=== PATIENT | female | born 1950 | race African-American/Black ===

== ENCOUNTER 2018-08-14 08:16 | Day surgery (SDC) | payer MEDICARE, OTHER ==
[2018-08-14] MEDS ORDERED: DEXAMETHASONE SODIUM PHOSPHATE 10 MG/ML VIAL ONE (08:48)
[2018-08-14] MEDS ORDERED: LIDOCAINE HCL 1% PF 300MG/30ML VIAL ONE (08:48)
[2018-08-14] MEDS ORDERED: ONDANSETRON HCL/PF 4 MG/ 2ML VIAL ONE (08:48)
[2018-08-14] MEDS ORDERED: PROPOFOL 200 MG/20 ML VIAL IV ONE (08:48)
[2018-08-14] MEDS ORDERED: LIDOCAINE HCL 2% PF 100MG/5ML VIAL IJ ONE (08:48)
[2018-08-14] MEDS ORDERED: FAMOTIDINE 20 MG/2 ML VIAL IV ONE (08:48)
[2018-08-14] MEDS ORDERED: PHENYLEPHRINE HCL 10 MG/1 ML ONE (08:48)
[2018-08-14] MEDS ORDERED: SUGAMMADEX SODIUM 200 MG/2 ML VIAL IV ONE (08:48)
[2018-08-14] MEDS ORDERED: SEVOFLURANE 250 ML LIQUID IH ONE (08:48)
[2018-08-14] MEDS ORDERED: MIDAZOLAM HCL 2 MG/2 ML VIAL ONE (08:48)
[2018-08-14] MEDS ORDERED: ENOXAPARIN SODIUM 40 MG/0.4 ML DISP.SYRIN SQ ONE (08:48)
[2018-08-14] MEDS ORDERED: ceFAZolin SODIUM 1 GM VIAL ONE (08:48)
[2018-08-14] MEDS ORDERED: LACTATED RINGERS 1,000 ML IV.SOLN IV ONE (08:48)
[2018-08-14] MEDS ORDERED: ROCURONIUM BROMIDE 10 MG/ML 5ML VIAL ONE (08:48)
[2018-08-14] MEDS ORDERED: SODIUM CHLORIDE IRRIG SOLUTION 3,000 ML IRRIG.SOLN IR ONE (08:48)
[2018-08-14] MEDS ORDERED: BUPIV. HCL 0.25% (2.5MG/ML)/EPI. (1:200,000) PF 10 ML VIAL IM ONE (08:48)
[2018-08-14] MEDS ORDERED: LACTATED RINGERS 1,000 ML IV ONE (12:13)
--- NOTE | 2018-08-26 16:03 | Operative Note ---
PREOPERATIVE DIAGNOSIS: 1. Morbid obesity. 2. Hypertension. 3. Obstructive sleep apnea. POSTOPERATIVE DIAGNOSIS: 1. Morbid obesity. 2. Hypertension. 3. Obstructive sleep apnea. 4. Hiatal hernia. PROCEDURES PERFORMED: 1. Laparoscopic vertical sleeve gastrectomy. 2. Laparoscopic repair of hiatal hernia. 3. Upper gastrointestinal endoscopy. SURGEON: Frank Boston M.D. INDICATIONS FOR PROCEDURE: Ms. Isabel is a 68-year-old female who presented with features of morbid obesity. She was noted to have a weight of 230 pounds with a BMI of 46.5 with the above-listed comorbidities. The patient was advised laparoscopic vertical sleeve gastrectomy and possible hiatal hernia repair. The patient showed understanding and agreed to proceed. DESCRIPTION OF PROCEDURE: After explaining to the patient in detail and informed consent was obtained, the patient was identified in the preoperative holding area. The patient was transferred to the operating room and was placed in supine position. Sequential compressive devices were placed for DVT prophylaxis. Preoperative antibiotics were given. After induction of anesthesia, the abdomen was prepped and draped in a sterile fashion. Through a left upper quadrant 1-cm incision, and using Optiview technique, the peritoneal cavity was entered and pneumoperitoneum was created. Thereafter, under direct vision, a 5-mm trocar was placed in the left midabdomen, a 15-mm trocar was placed in the right midabdomen, and another 5-mm trocar was placed in the right subcostal region. Through a 1-cm incision in the epigastrium, a Fabiola retractor was introduced and the left lobe of the liver was retracted. On initial inspection, the patient was noted to have a 3-cm hiatal hernia. Using pars flaccida technique, the right anderson was identified. The sac was gently dissected off the right anderson using hook electrocautery and subsequently with LigaSure. This was continued anteriorly. I then continued to mobilize anteriorly and along the left anderson as much as possible. After adequate mobilization, I then performed an anterior cruroplasty with a [id number] Ethibond suture. This was done using an Endo Stitch device. Another suture was then used to anchor the GE junction onto the right crura as well. I then started to take down the gastroepiploic vessels along the greater curvature. This was continued superiorly. The short gastric vessels were taken down. The gastrophrenic ligament was divided and the Angle of His was mobilized. Distally, the gastroepiploic vessels were taken down up to about 4 cm proximal to the pylorus. At this point, a #40 [place] Hurst bougie was inserted into the stomach and this was placed along the lesser curve. The stomach was then divided in a vertical fashion with multiple Endo DYLLAN Covidien Stapler black loads with Kirsty-Strips. The first firing was directed outwards towards the greater curvature. Subsequent firings were directed towards the Angle of His to create a loose sleeve around the #40 [place] bougie. Absolute hemostasis was ensured. Thorough saline irrigation was given. An upper GI endoscopy was then performed at this stage. The orogastric tube was removed. The scope was introduced into the esophagus and was gradually advanced into the stomach. An air leak test was performed and no leak was noted along the staple line. Absolute hemostasis was ensured. Thorough saline irrigation was given. The sleeve gastrectomy specimen was removed. The Fabiola retractor was removed. The 15-mm port site incision was closed with 0 Vicryl using a fascial closure device. The skin was closed with 4-0 Monocryl for all the incisions. Dermabond was applied. The patient was stable at the end of the procedure. The patient was awakened from anesthesia and was transferred to the recovery room in stable condition. ESTIMATED BLOOD LOSS: 25 mL. CONDITION OF THE PATIENT: Stable. FLUIDS GIVEN: Per Anesthesia note. SPECIMEN(S) SENT: Sleeve gastrectomy specimen. COMPLICATIONS: None. ANESTHESIA: General. Frank Boston M.D. CORDELIA/suzy (Please copy [facility] provider when applicable) Job #[id number] [place]
== END 2018-08-14 12:49 | disposition other institution (70) ==
LOC: OPSURG 08:16
PROVIDERS: ATTEND Surgery
DX: E66.01 Morbid (severe) obesity due to excess calories (principal); K44.9 Diaphragmatic hernia without obstruction or gangrene; G47.33 Obstructive sleep apnea (adult) (pediatric); I10 Essential (primary) hypertension; Z68.42 Body mass index [BMI] 45.0-49.9, adult
CPT/HCPCS: 43775; 88305; J0690; J1650; J2001; J2250; J2370; J2405; J2704; J7120

== ENCOUNTER 2018-08-14 12:50 | Inpatient (IN) | payer MEDICARE, OTHER ==
[2018-08-14 13:13] VITALS: BMI 45.0
--- NOTE | 2018-08-14 13:13 | History and Physical Report ---
History of Present Illnes - History of Present Illness Reason for Visit: S/P LSG History of Present Illness: Patient is a 68-year-old female who has tried multiple diets and exercise programs with no success. She has always struggled with her weight. She has tried many diet plans, diet pills, and walking but has not been able to keep it off. Patient and surgeon decided to proceed with gastric sleeve procedure. Procedure went well- She will be admitted and monitored s/p surgical intervention. Patient has been on a liquid diet prior to surgery so she is a risk of dehydration s/p surgery. She will be admitted for IV hydration to help hydrate patient until she is able to tolerate a sufficient oral intake, will treat pain with IV medication until patient is able to tolerate oral meds, IV antiemetics to help reduce episodes of nausea and/or vomiting. Patient will be monitored closely using telemetry due to cardiac history of HTN and sleep apnea. Will monitor closely for hypo/hyperglycemia. Upon nursing entry to room patient was sleeping- oxygen saturation 65%. Patient was woken up- moved up in bed and placed on supplemental oxygen- Oxygen saturation increased > 95%. Patient is still very sleepy-arouses to name. Siblings are at patient bedside. - Past Medical History Cardiac: CAD, CHF, HTN Pulmonary: Asthma, Bronchitis, COPD, Sleep Apnea MATERIALS INTERN: Migraine Gastrointestinal: GERD, Irritable bowel disease, Other (DYSPEPSIA) Heme/Onc: Anemia NOS Psych: Anxiety, Depression Musculoskeletal: Osteoarthritis, Other (DJD) Rheumatologic: Fibromyalgia Endocrine: Diabetes, obesity - Past Surgical History Past Surgical History: Other (SHOULDER) - Past Family History Mother Family History: Father Family History: - Past Social History Smoke: Quit (2002) Alcohol: None Drugs: None Lives: With Family - Health Maintenance Health Maintenance: Cholesterol Influenza Vaccine: Current for this Influenza Season Pneumonia Vaccine: No Resuscitation Status: FULL CODE Review of Systems - Review of Systems Constitutional: negative: Fever, Chills Eyes: other (wears glasses). negative: vision change ENT: negative: Nose Congestion, Throat Pain Respiratory: Other (Oxygen sat was in the 70s on room air and sleeping). negative: Shortness of Breath, SOB with Excertion Cardiovascular: negative: Chest Pain, Light Headedness Gastrointestinal: Nausea, Abdominal Pain. negative: Vomiting Genitourinary: negative: Dysuria Musculoskeletal: Back Pain Skin: negative: Rash Neurological: Other (still very sleepy) - Medications/Allergies Allergies/Adverse Reactions: Allergies Allergy/AdvReac Type Severity Reaction Status Date / Time Sulfa (Sulfonamide Allergy Verified 08/14/18 13:04 Antibiotics) Home Medications: Home Medications ARIPiprazole [Abilify] 2 mg PO DAILY 08/14/18 Cetirizine HCl [Allergy] 10 mg PO DAILY 08/14/18 Esomeprazole Magnesium 20 mg PO BID 08/14/18 Furosemide 20 mg PO DAILY 08/14/18 Gabapentin 300 mg PO BID 08/14/18 Losartan Potassium [Cozaar] 100 mg PO BID 08/14/18 Lubiprostone [Amitiza] 24 mcg PO DAILY 08/14/18 Metformin HCl 500 mg PO BID 08/14/18 Pregabalin [Lyrica] 50 mg PO TID 08/14/18 Sertraline HCl [Zoloft] 50 mg PO DAILY 08/14/18 Tizanidine HCl [Zanaflex] 4 mg PO TID 08/14/18 Tramadol HCl [Ultram] 50 mg PO Q6 PRN 08/14/18 Exam - Exam Vital Signs: Vital Signs (72 hours) 08/14/18 13:06 Temperature 96.5 F L Pulse Rate [ 64 Left] Respiratory 18 Rate Blood Pressure 136/77 [Left Arm] O2 Sat by Pulse 100 Oximetry General: Alert (responds to name and tries to answer), Mild distress, Morbidly Obese HEENT: PERRLA, Nose Mucous membr. moist/[place] Neck: Normal Range of Motion Carotids: No bruit Lungs: Clear to auscultation, Normal air movement Cardiovascular: Regular rate, Normal S1, Normal S2, Other (pocket telemetry- rate in the 60s) Abdomen: Soft, Decreased Bowel Sounds Integumentary: Warm, Dry, Pale, Other (incisions x 5 without redness/drainage- dermabond intact) Extremities: Normal pulses Neurological: Strength Equal Bilat, Sensation intact Psych/Mental Status: Appropriate Affect Assessment/Plan - Assessment/Plan (1) S/P gastric surgery Status: Acute Current Visit: Yes Plan: Plan to admit for IV hydration, IV pain meds, and IV antiemetics. Lovenox and SCDs to help prevent DVTs, IS and frequent ambulation will be implemented. Start ice chips and advance diet as tolerated. Will check blood pressures and blood sugars frequently (2) Morbid obesity due to excess calories Status: Acute Current Visit: Yes Plan: Patient is s/p gastric sleeve. We will assist patient with implementing gastric sleeve diet protocol starting with ice chips and clear liquids and advancing as tolerated. (3) COPD (chronic obstructive pulmonary disease) Status: Acute Current Visit: Yes Plan: Will implement Duonebs every 6 hours prn and Albuterol every 2 hours prn SOA (4) LATISHA on CPAP Status: Acute Current Visit: Yes Plan: Patient will be monitored closely- has home CPAP (5) CHF (congestive heart failure) Status: Acute Current Visit: Yes Qualifiers: Heart failure type: diastolic Heart failure chronicity: chronic Qualified Code(s): I50.32 - Chronic diastolic (congestive) heart failure Plan: Will keep IVF at 70cc/hr due to CHF and monitor patient closely for signs of acute failure (6) Type 2 diabetes mellitus Status: Acute Current Visit: Yes Plan: Will monitor blood sugars closely for hypo/hyperglycemia; may have to implement SSI (7) Hypertension Status: Acute Current Visit: Yes Qualifiers: Hypertension type: essential hypertension Qualified Code(s): I10 - Essential (primary) hypertension Plan: Will monitor blood pressures closely and implement medication as needed (8) Nausea and vomiting Status: Acute Current Visit: Yes Qualifiers: Vomiting Intractability: unspecified Plan: Will implement IV anti-emetics for nausea and vomiting- will continue with IVF for IV hydration (9) Hypoxia Status: Acute Current Visit: Yes Plan: Will have patient wear CPAP when sleeping- will use supplemental oxygen- will use bedside pulse ox for continuous observation VTE Assessment - RISK FACTOR SCORE VTE RISK FACTOR SCORES: AGE OVER 60 YEARS, OBESITY, MAJOR SURGERY/ANESTHESIA TIME > 1 HOUR - RISK VTE HIGH RISK: SCORE OF 3-4 (RISK PROXIMAL DVT 4-8%) PROPHYLAXIS NEEDED (Lovenox daily, frequent ambulation, Incentive spirometry, SCDs while in bed)
[2018-08-14] MEDS ORDERED: IPRATROPIUM/ALBUTEROL SULFATE 3 ML AMPUL.NEB NEB PRN (13:15)
[2018-08-14] MEDS ORDERED: PROMETHAZINE HCL 25 MG in 0.9 % SODIUM CHLORIDE 50 ML IV PRN (13:15)
[2018-08-14] MEDS ORDERED: MORPHINE SULFATE 4 MG/ML VIAL IVP PRN (13:15)
[2018-08-14] MEDS: 0.9 % SODIUM CHLORIDE 1,000 ML IV SCH ×2 (13:34→21:48)
[2018-08-14] MEDS ORDERED: ALBUTEROL SULFATE 2.5 MG/3 ML AMPUL.NEB NEB PRN (13:53)
[2018-08-14] MEDS: ACETAMINOPHEN 1,000 MG/100 ML INJ IV PRN (17:41)
[2018-08-14] MEDS: ceFAZolin SODIUM 1 GM/50 ML PIGGYBACK IV SCH (18:14)
[2018-08-14] MEDS: HYDROcodone-ACETAMIN 7.5-325/15ML SOLN UD CUP PO PRN (21:59)
[2018-08-14] MEDS: FAMOTIDINE 20 MG/2 ML VIAL IVP SCH (22:03)
[2018-08-15] MEDS: ONDANSETRON HCL/PF 4 MG/ 2ML VIAL IVP PRN ×2 (00:19→09:08)
[2018-08-15] MEDS: ceFAZolin SODIUM 1 GM/50 ML PIGGYBACK IV SCH (02:01)
[2018-08-15] MEDS: HYDROcodone-ACETAMIN 7.5-325/15ML SOLN UD CUP PO PRN ×3 (04:30→22:44)
[2018-08-15] MEDS: 0.9 % SODIUM CHLORIDE 1,000 ML IV SCH ×3 (04:31→23:52)
--- NOTE | 2018-08-15 06:30 | Inpatient Progress Note ---
Subjective - Required Recertification Statement I anticipate X number of days because-include discharge plan: 1 - Review of Systems Events since last encounter: Patient states that she had a rough night. She had some nausea and dry heaves- was having trouble keeping anything down. She was given Zofran and Phenergan. She was encouraged to sip her drinks and wait in between drinks- she states that her pain is tolerable and pain medications are working. She has been up walking in the boss with encouragement from nursing, wearing SCDs while in bed, and using Incentive Spirometry with encouragement by nursing- incision sites are dry and intact with dermabond. 18:00- Multiple calls this evening from nursing that patient was very agitated, yelling, not being cooperative. I arrived to see patient she was upset with nursing, holding aggressively to RN. Refocused patient and got her to calm down. Walked with her and sat outside for an hour to get her out of her room. She did great- she wanted to pray. Sat and visited for an hour- she was feeling much better and was ready to go back to her room and rest. Patient back to room around 20:00. She is cooperative and friendly with staff. General: Denies: Chills HEENT: Denies: Dysphasia, Sinus Congestion Pulmonary: Denies: Dyspnea Cardiovascular: Denies: Light Headedness Gastrointestinal: Nausea, Vomiting, Abdominal Pain Genitourinary: Denies: Dysuria Musculoskeletal: Denies: Back Pain Neurological: Denies: Weakness Objective - Exam Vitals and I&O: Vital Signs Temp 98.4 F 08/15/18 05:38 Pulse 84 08/15/18 06:00 Resp 18 08/15/18 06:00 BP 120/62 08/15/18 05:38 Pulse Ox 100 08/15/18 06:00 Intake & Output 08/14/18 08/14/18 08/15/18 11:59 23:59 11:59 Intake Total 1030 420 Output Total 1400 700 Balance -370 -280 Weight 101.151 kg Intake: IV 980 420 Right Hand 980 420 Oral 50 Output: Urine 1400 700 Other: Voiding Method Toilet Toilet # Voids 1 2 # Bowel Movements 0 General: Alert, Oriented to Person, Oriented to Place, Oriented to Time, Cooperative, Morbidly Obese HEENT: Atraumatic, PERRLA, Nose Mucous membr. moist/[place] Neck: Supple, +2 carotid pulse wo bruit Lungs: Clear to auscultation, Normal air movement, Speaks full Sentences Cardiovascular: Regular rate, Normal S1, Normal S2 Abdomen: Soft, Decreased Bowel Sounds Extremities: Normal pulses, No tenderness/swelling Skin: [place], Warm, Dry, Other (Incisions x 5 without redness/erythema- dermabond intact) Neurological: Normal gait, Normal speech, Strength Equal Bilat, Sensation intact Psych/Mental Status: Mental status NL, Mood NL, Appropriate Affect, Intact Judgment Assessment/Plan - Assessment/Plan (1) S/P gastric surgery Status: Acute Assessment: Patient experiencing nausea and vomiting- has been ambulating, wearing SCDs while in bed, using incentive spirometry, patient receiving lovenox to prevent DVT Plan: Patient getting IV fluids for hydration, IV pain meds, and IV antiemetics. Lovenox and SCDs to help prevent DVTs, IS and frequent ambulation will be implemented. Patient eating ice chips and will advance diet as tolerated once nausea and vomiting is controlled. (2) Morbid obesity due to excess calories Status: Acute Assessment: Patient working on ice chips- will advance to clear liquids as tolerated Plan: Will start with ice chips and advance to clear liquids once N/V controlled (3) COPD (chronic obstructive pulmonary disease) Status: Acute Assessment: LCTA Plan: Will continue to encourage incentive spirometer, HFN txs ordered as needed (4) LATISHA on CPAP Status: Acute Assessment: Stable Plan: Will continue to wear CPAP when sleeping (5) CHF (congestive heart failure) Status: Acute Qualifiers: Heart failure type: diastolic Heart failure chronicity: chronic Qualified Code(s): I50.32 - Chronic diastolic (congestive) heart failure Assessment: LCTA, IVF at 70cc/hr and monitoring closely for edema Plan: Monitor closely for SOA, edema (6) Type 2 diabetes mellitus Status: Acute Assessment: Blood sugars are decreasing to normal ranges Plan: Will continue to monitor blood sugars and sx's of hypo/hyperglycemia (7) Hypertension Status: Acute Qualifiers: Hypertension type: essential hypertension Qualified Code(s): I10 - Essential (primary) hypertension Assessment: Blood pressures are stable Plan: Will continue with home meds once patient is able to tolerate PO (8) Nausea and vomiting Status: Acute Qualifiers: Vomiting Intractability: unspecified Assessment: Patient had some nausea and dry heaves Plan: Patient continues to receive IV antiemetic and IVF (9) Hypoxia Status: Acute Assessment: sTable Plan: Stable
[2018-08-15 06:48] LABS: eGFR (Non-African) > 60
[2018-08-15 06:50] LABS: BASOPHILS % 0.4 % (0.0-1.5); NEUTROPHILS # 5.5 # k/uL (1.4-7.7)
[2018-08-15] MEDS: FAMOTIDINE 20 MG/2 ML VIAL IVP SCH ×2 (09:08→19:56)
[2018-08-15] MEDS: ENOXAPARIN SODIUM 40 MG/0.4 ML DISP.SYRIN SQ SCH (09:08)
[2018-08-15] MEDS ORDERED: KETOROLAC TROMETHAMINE 30 MG/1ML VIAL IV PRN (13:15)
[2018-08-15] MEDS: ACETAMINOPHEN 1,000 MG/100 ML INJ IV PRN (15:00)
[2018-08-15] MEDS ORDERED: LORazepam 2 MG/ML VIAL ONE (17:24)
[2018-08-15] MEDS ORDERED: LORazepam 2 MG/ML VIAL IV ONE (17:41)
[2018-08-15] MEDS ORDERED: TIZANIDINE HCL 4 MG TABLET PO ONE ×2 (18:48→19:22)
[2018-08-15] MEDS ORDERED: traZODone HCL 50 MG TABLET ONE (19:22)
[2018-08-15] MEDS ORDERED: traZODone HCL 50 MG TABLET PO SCH (21:00)
[2018-08-16] MEDS: HYDROcodone-ACETAMIN 7.5-325/15ML SOLN UD CUP PO PRN (06:17)
--- NOTE | 2018-08-16 06:23 | Discharge Summary ---
Discharge Summary - Discharge [facility] Admission Date: 08/14/18 Discharge Date: 08/16/18 Discharge To: Home History of Present Illness: Patient is a 68-year-old female who has tried multiple diets and exercise programs with no success. She has always struggled with her weight. She has tried many diet plans, diet pills, and walking but has not been able to keep it off. Patient and surgeon decided to proceed with gastric sleeve procedure. Procedure went well- She will be admitted and monitored s/p surgical intervention. Patient has been on a liquid diet prior to surgery so she is a risk of dehydration s/p surgery. She will be admitted for IV hydration to help hydrate patient until she is able to tolerate a sufficient oral intake, will treat pain with IV medication until patient is able to tolerate oral meds, IV antiemetics to help reduce episodes of nausea and/or vomiting. Patient will be monitored closely using telemetry due to cardiac history of HTN and sleep apnea. Will monitor closely for hypo/hyperglycemia. Condition at Discharge: Stable Home Medications: Ambulatory Orders Medication Instructions Recorded ARIPiprazole [Abilify] 2 mg PO DAILY 08/14/18 Cetirizine HCl [Allergy] 10 mg PO DAILY 08/14/18 Esomeprazole Magnesium 20 mg PO BID 08/14/18 Furosemide 20 mg PO DAILY 08/14/18 Gabapentin 300 mg PO BID 08/14/18 Losartan Potassium [Cozaar] 100 mg PO BID 08/14/18 Lubiprostone [Amitiza] 24 mcg PO DAILY 08/14/18 Metformin HCl 500 mg PO BID 08/14/18 Pregabalin [Lyrica] 50 mg PO TID 08/14/18 Sertraline HCl [Zoloft] 50 mg PO DAILY 08/14/18 Tizanidine HCl [Zanaflex] 4 mg PO TID 08/14/18 Tramadol HCl [Ultram] 50 mg PO Q6 PRN 08/14/18 Consultations this Visit: None Procedures this Visit: Other (S/P LSG) Allergies/Adverse Reactions: Allergies Allergy/AdvReac Type Severity Reaction Status Date / Time Sulfa (Sulfonamide Allergy Verified 08/14/18 13:04 Antibiotics) Patient Problems: Current Active Problems Problem Status Onset CHF (congestive heart failure) Acute COPD (chronic obstructive pulmonary disease) Acute GERD (gastroesophageal reflux disease) Acute Hypertension Acute Hypoxia Acute Morbid obesity due to excess calories Acute Nausea and vomiting Acute LATISHA on CPAP Acute S/P gastric surgery Acute Type 2 diabetes mellitus Acute Discharge Summary: Patient is a 68-year-old female that underwent the gastric sleeve procedure. She had some issues with nausea and dry heaves but has done well. She has been very cooperative with her care by ambulating frequently, using her incentive spirometer, and wearing her SCDs while in bed. She has been compliant with her diet during hospitalization. She is having minimal discomfort at this time and minimal nausea- she has is passing gas and belching. She is aware of discharge instructions and what she can and cannot do post surgical- she is aware of the strict diet she must follow to decrease discomfort and have success after procedure. She has family support and family will be taking her home- me dications written by surgeon given to patient. She feels ready to go home. Hospital Course: Patient received pain medications, antiemetics, and IVF and was transitioned to oral. She has been up ambulating and using incentive spirometer. - Final Diagnosis (1) S/P gastric surgery Problems: Incision without redness or drainage, positive bowel sounds, minimal discomfort, belching and flatus, no extremity pain or edema, LCTA Right or Left: Right (2) Morbid obesity due to excess calories Problems: Continue with bariatric sleeve diet- clear liquids today and start full liquids tomorrow; protein shake 80-100 grams protein Right or Left: Right (3) COPD (chronic obstructive pulmonary disease) Problems: Continue with home meds and inhalers as instructed by PCP Right or Left: Right (4) LATISHA on CPAP Problems: STABLE- CONTINUE TO USE CPAP Right or Left: Right (5) CHF (congestive heart failure) Problems: Continue on home meds as directed by your PCP Right or Left: Right (6) Type 2 diabetes mellitus Problems: BLOOD SUGARS HAVE BEEN WNL- CHECK DAILY; KEEP LOG; TAKE TO FOLLOW UP APPOINTMENT- MAY NOT NEED TO TAKE; F/U WITH PCP Right or Left: Right (7) Hypertension Problems: Stable- monitor blood pressures daily- keep log and take to follow up appointment Right or Left: Right (8) Nausea and vomiting Problems: STABLE- SCRIPT SENT HOME FOR PHENERGAN Right or Left: Right (9) Hypoxia Problems: Improved Right or Left: Right (10) GERD (gastroesophageal reflux disease) Problems: STABLE- CONTINUE ON OMEPRAZOLE Right or Left: Right
[2018-08-16] MEDS: 0.9 % SODIUM CHLORIDE 1,000 ML IV SCH (06:27)
[2018-08-16 08:17] VITALS: BP 139/54
[2018-08-16] MEDS: FAMOTIDINE 20 MG/2 ML VIAL IVP SCH (08:58)
[2018-08-16] MEDS: ENOXAPARIN SODIUM 40 MG/0.4 ML DISP.SYRIN SQ SCH (08:58)
== END 2018-08-16 09:31 | disposition home or self-care (01) | DRG 620 ==
LOC: SOUTH 12:50
PROVIDERS: ADMIT Nurse Practitioner Family; ATTEND Nurse Practitioner Family
PROC: 0DB64Z3 Excision of Stomach, Percutaneous Endoscopic Approach, Vertical (ICD-10-PCS; principal; 2018-08-14)
PROC: 0BQT4ZZ Repair Diaphragm, Percutaneous Endoscopic Approach (ICD-10-PCS; 2018-08-14)
DX: E66.01 Morbid (severe) obesity due to excess calories (principal); I50.32 Chronic diastolic (congestive) heart failure; I25.10 Atherosclerotic heart disease of native coronary artery without angina pectoris; I11.0 Hypertensive heart disease with heart failure; J44.9 Chronic obstructive pulmonary disease, unspecified; G47.33 Obstructive sleep apnea (adult) (pediatric); R11.2 Nausea with vomiting, unspecified; G43.909 Migraine, unspecified, not intractable, without status migrainosus; K21.9 Gastro-esophageal reflux disease without esophagitis; R09.02 Hypoxemia; K58.9 Irritable bowel syndrome, unspecified; D64.9 Anemia, unspecified; F41.9 Anxiety disorder, unspecified; F32.9 Major depressive disorder, single episode, unspecified; K44.9 Diaphragmatic hernia without obstruction or gangrene; M19.90 Unspecified osteoarthritis, unspecified site; M79.7 Fibromyalgia; E11.9 Type 2 diabetes mellitus without complications; Z87.891 Personal history of nicotine dependence; Z88.2 Allergy status to sulfonamides; Z79.899 Other long term (current) drug therapy; Z79.84 Long term (current) use of oral hypoglycemic drugs; Z87.11 Personal history of peptic ulcer disease; Z68.42 Body mass index [BMI] 45.0-49.9, adult
CPT/HCPCS: 80053; 85025; 97116; 97161; 97165; 97530; 97535; A9270; J1650; J1885; J2060; J2405; J7030; 99221